=== PATIENT | male | born 1985 | race Caucasian/White ===

== ENCOUNTER 2016-07-22 07:51 | Emergency (ER) | payer MEDICARE ==
[2014-08-11 00:42] VITALS: BMI 27.5
[~2016-07-22 07:51] MED LIST: CELEXA20 MG PO; DESERYL100 MG PO; KLONOPIN1 MG PO
[2016-07-22 08:15] LABS: APPEARANCE CLEAR (CLEAR); BILIRUBIN NEGATIVE (NEGATIVE); COLOR YELLOW (YELLOW); GLUCOSE NEGATIVE (NEGATIVE); KETONE NEGATIVE (NEGATIVE); LEUKOCYTE ESTERASE NEGATIVE (NEGATIVE); NITRITE NEGATIVE (NEGATIVE); PROTEIN NEGATIVE (NEGATIVE); SPECIFIC GRAVITY 1.015 (1.005-1.020); UROBILINOGEN NORMAL (NORMAL)
[2016-07-22 08:22] LABS: BASOPHILS 0.3 % (0-2); EOSINOPHILS 1.5 % (0-7); HEMATOCRIT 42.9 % (42.0-54.0); HEMOGLOBIN 15.1 g/dL (13.5-17.5); IMMATURE GRANULOCYTES 0.3 % (0-5); MCH 30.9 pg (26.0-34.0); MCHC 35.2 g/dL (31.0-37.0); MCV 87.7 fL (80.0-100.0); MEAN PLATELET VOLUME 9.6 fL (7.4-10.4); MONOCYTES 7.1 % (2-11); NEUTROPHILS 77.8 % (40-80); PLATELET COUNT 153 10x3/uL (130-400); RBC 4.89 10x6/uL (4.20-6.10); RDW 12.4 % (11.5-14.5); WBC 7.9 10x3/uL (4.8-10.8)
[2016-07-22 08:23] LABS: UDS - AMPHET POSITIVE QUAL (NEGATIVE); UDS - BARB NEGATIVE QUAL (NEGATIVE); UDS - BENZO NEGATIVE QUAL (NEGATIVE); UDS - COCAINE POSITIVE QUAL (NEGATIVE); UDS - METH NEGATIVE QUAL (NEGATIVE); UDS - OPIATE POSITIVE QUAL (NEGATIVE); UDS - PCP NEGATIVE QUAL (NEGATIVE); UDS - THC NEGATIVE QUAL (NEGATIVE)
[2016-07-22 08:44] LABS: ALBUMIN 3.8 g/dL (3.4-5.0); BILIRUBIN - TOTAL 0.63 mg/dL (0.2-1.3); CALCIUM 9.2 mg/dL (8.5-10.1); CARBON DIOXIDE 31.1 mmol/L (21.0-32.0); CREATININE - SERUM 1.5 mg/dL (0.6-1.3); POTASSIUM - SERUM 4.1 mmol/L (3.5-5.1); PROTEIN - SERUM 7.6 g/dL (6.4-8.2)
== END 2016-07-22 10:24 | disposition home or self-care (01) ==
LOC: D.ER 07:51
PROVIDERS: Emergency Medicine Emergency Medical Services
DX: E86.0 Dehydration (principal); R53.1 Weakness; K52.9 Noninfective gastroenteritis and colitis, unspecified; F19.10 Other psychoactive substance abuse, uncomplicated; F17.200 Nicotine dependence, unspecified, uncomplicated

== ENCOUNTER 2017-08-21 22:24 | Emergency (ER) | payer MEDICARE ==
[~2017-08-21] VITALS: Ht 167.6 cm; Wt 79.5 kg
[2017-08-21 23:24] VITALS: Ht 167.6 cm; Wt 79.5 kg
[2017-08-21] MEDS ORDERED: BUPRENORPHIN-N1 EACH (23:25)
[2017-08-21 23:54] LABS: BASOPHILS 0.1 % (0-2); EOSINOPHILS 1.2 % (0-7); HEMATOCRIT 43.3 % (42.0-54.0); HEMOGLOBIN 15.3 g/dL (13.5-17.5); IMMATURE GRANULOCYTES 0.2 % (0-5); LYMPHOCYTES 12.6 % (15-50); MCH 30.9 pg (26.0-34.0); MCHC 35.3 g/dL (31.0-37.0); MCV 87.5 fL (80.0-100.0); MEAN PLATELET VOLUME 9.5 fL (7.4-10.4); MONOCYTES 7.9 % (2-11); PLATELET COUNT 175 10x3/uL (130-400); RBC 4.95 10x6/uL (4.20-6.10); RDW 12.5 % (11.5-14.5); WBC 8.2 10x3/uL (4.8-10.8)
[2017-08-22 00:42] LABS: ANION GAP 13.8 mmol/L (8-16); CALCIUM 9.1 mg/dL (8.5-10.1); CREATININE - SERUM 1.4 mg/dL (0.6-1.3); POTASSIUM - SERUM 3.8 mmol/L (3.5-5.1); THYROID STIMULATING HORMONE 0.79 uIU/mL (0.36-3.74)
[2017-08-22 02:08] LABS: UDS - AMPHET POSITIVE QUAL (NEGATIVE); UDS - BARB NEGATIVE QUAL (NEGATIVE); UDS - BENZO NEGATIVE QUAL (NEGATIVE); UDS - COCAINE POSITIVE QUAL (NEGATIVE); UDS - OPIATE NEGATIVE QUAL (NEGATIVE); UDS - PCP NEGATIVE QUAL (NEGATIVE); UDS - THC POSITIVE QUAL (NEGATIVE)
[2017-08-22 03:57] VITALS: BP 122/72
[2017-08-22] MEDS ORDERED: TESTOSTERON200 MG/ML IM (09:47)
== END 2017-08-22 03:11 | disposition home or self-care (01) ==
LOC: D.ER 22:24
PROVIDERS: Family Medicine
DX: Z00.00 Encounter for general adult medical examination without abnormal findings (principal); F13.10 Sedative, hypnotic or anxiolytic abuse, uncomplicated; F15.10 Other stimulant abuse, uncomplicated

== ENCOUNTER 2017-08-22 09:28 | Emergency (ER) | payer MEDICARE ==
[~2017-08-22] VITALS: Ht 167.6 cm; Wt 79.5 kg
[~2017-08-22 09:28] MED LIST changes: +BUPRENORPHIN-N1 EACH
[2017-08-22 09:46] VITALS: Ht 167.6 cm; Wt 79.5 kg
[2017-08-22] MEDS ORDERED: TESTOSTERON200 MG/ML IM (09:47)
[2017-08-22 11:39] VITALS: BP 113/080
== END 2017-08-22 11:41 ==
LOC: D.ER 09:28
DX: R45.851 Suicidal ideations (principal); F15.10 Other stimulant abuse, uncomplicated; F14.10 Cocaine abuse, uncomplicated